=== PATIENT | male | born 1990 | race Caucasian/White ===

== ENCOUNTER 2016-12-16 02:47 | Inpatient (IN) | payer MEDICAID, OTHER ==
--- NOTE | 2016-12-16 03:42 | EDPHY ---
H & P Stated Complaint: Right finger infection x 2-3 days HPI/ROS: HPI CHIEF COMPLAINT: Right 3rd digit finger infection HISTORY OF PRESENT ILLNESS: This patient is a 18 year male significant past medical history for hdranaitis suppurtiva, presents emergency room with 2-3 days or since Fridayof his right hand 3rd digit. Patient denies trauma. He is unsure how it got swollen and infected. Presents emergency room 349 in the morning with severe pain and swelling to the 3rd digit. Denies fever. Does tell me the pain tracks up his finger to his palm and up his arm. Past Medical History: Hydranitis Suppurtiva Past Surgical History: Left hand surgery due to hand infection Social History: smokes tobacco, denies illicit drugs, denies alcohol, works at [employer] Family History: Noncontributory ROS REVIEW OF SYSTEMS: A comprehensive 10 point review of systems is otherwise negative aside from elements mentioned in the history of present illness. Exam Constitutional triage nursing summary reviewed, vital signs reviewed, awake/ alert. Eyes normal conjunctivae and sclera, EOMI, PERRLA. HENT normal inspection, atraumatic, moist mucus membranes, no epistaxis, neck supple/ no meningismus, no raccoon eyes. Respiratory clear to auscultation bilaterally, normal breath sounds, no respiratory distress, no wheezing. Cardiovascular rate normal, regular rhythm, no murmur, no edema, distal pulses normal. Gastrointestinal soft, non-tender, no rebound, no guarding, normal bowel sounds, no distension, no pulsatile mass. Genitourinary no CVA tenderness. Musculoskeletal right hand: Right hand is neurovascularly intact, good cap refill, warm extremity, good pulse. Noted on the 3rd digit: The 3rd digit is appearance of a sausage digit, is extrude was the tender over the palmar aspect there is an obvious infection to the 3rd digit. (specifically the finger is held in flexed position, there is uniform sausage digit swelling, it is warm, is tenderness palpation over the tendon, and has pain with passive extension) He does have signs of flexor tenosynovitis no midline vertebral tenderness, full range of motion, no calf swelling, no tenderness of extremities, no meningismus, good pulses, neurovascularly intact. Skin pink, warm, & dry, no rash, skin atraumatic. Neurologic awake, alert and oriented x 3, AAOx3, moves all 4 extremities equally, motor intact, sensory intact, CN II-XII intact, normal cerebellar, normal vision, normal speech. Psychiatric normal mood/affect. Heme/Lymph/Immune no lymphadenopathy. Differential Diagnosis: Includes but is not limited to in a particular order, hand infection, flexor tenosynovitis, finger infection, sepsis Medical Decision Making: This patient had an IV established this patient be given medication including pain is IV fentanyl, Zofran and IV fluids. He will need blood work. He will need x-ray of his digit. Will need to rule out foreign body Hand surgery be consulted. Patient will most likely need to be admitted. Re-evaluation: 0434: I did consult Hand surgery at this time. Spoke with Dr. Ramsey. Recommends admission to the hospital. He will he will consult on this patient. ED x-ray right 3rd digit: this x-ray shows significant soft tissue swelling. No foreign body seen. No bony abnormality no gas. 0436: This patient is resting comfortably in emergency room had IV fentanyl for pain control, IV fluids. X-ray reviewed shows no acute foreign body or bony abnormality. Soft tissue swelling present. Patient received IV vancomycin. Spoke with Hand surgery recommend hospital admission plan to see later today. Blood work has been reviewed shows an elevated CRP. No elevated white blood count or left shift. 0438:This patient is hemodynamically stable no acute distress, spoke with the hospitalist service Dr. Perez agrees to admit this patient. Hand surgeon to see today. Source: Patient - Personal History Current Tetanus Diphtheria and Acellular Pertussis (TDAP): Unsure - Medical/Surgical History Hx Asthma: No Hx Chronic Respiratory Disease: No Hx Diabetes: No Hx Cardiac Disease: No Hx Renal Disease: No Hx Cirrhosis: No Hx Alcoholism: No Hx HIV/AIDS: No Hx Splenectomy or Spleen Trauma: No Other PMH: HTN, SKIN CONDITION - Social History Smoking Status: Current every day smoker Constitutional: Initial Vital Signs Temperature (C) 36.6 C 12/16/16 03:02 Heart Rate 94 12/16/16 03:02 Respiratory Rate 18 12/16/16 03:02 Blood Pressure 149/84 H 12/16/16 03:02 O2 Sat (%) 94 12/16/16 03:02 O2 Delivery Mode Room Air Allergies/Adverse Reactions: sulfamethoxazole [From Bactrim] Allergy (Verified 12/16/16 03:01) trimethoprim [From Bactrim] Allergy (Verified 12/16/16 03:01) Home Medications: Medication Instructions Recorded Acetaminophen [Tylenol 325mg (*)] 325 mg PO DAILY PRN 12/16/16 Herbals/Supplements -Info Only 1 ea PO DAILY 12/16/16 Medical Decision Making - Data Points Laboratory Results: Laboratory Results 12/16/16 04:02 12/16/16 04:02 Medications Given: Discontinued Medications Diphenhydramine HCl (Benadryl Injection) 25 mg IVP EDNOW ONE Stop: 12/16/16 05:15 Last Admin: 12/16/16 05:15 Dose: 25 mg Fentanyl (Sublimaze) 50 mcg IVP EDNOW ONE Stop: 12/16/16 03:48 Last Admin: 12/16/16 04:04 Dose: 50 mcg Sodium Chloride (Ns) 1,000 mls @ 0 mls/hr IV ONCE ONE PRN Reason: Wide Open Stop: 12/16/16 03:48 Last Admin: 12/16/16 04:00 Dose: 1,000 mls Vancomycin HCl 1 gm/ Sodium (Chloride) 250 mls @ 250 mls/hr IV EDNOW ONE PRN Reason: Protocol Stop: 12/16/16 04:59 Last Admin: 12/16/16 04:13 Dose: 250 mls Vancomycin/Sodium Chloride (Vancomycin 1 Gm (Premix)) 250 mls @ 250 mls/hr IV Q12H JENARO PRN Reason: Protocol Stop: 01/15/17 04:59 Last Admin: 12/16/16 05:14 Dose: Not Given Sodium Chloride (Ns) 1,000 mls @ 75 mls/hr IV CONT JENARO Stop: 06/14/17 04:59 Last Admin: 12/16/16 06:05 Dose: 1,000 mls Lidocaine HCl (Lidocaine Hcl 1%) 30 ml IV ONCE ONE Stop: 12/16/16 07:31 Last Admin: 12/16/16 07:17 Dose: 30 ml Ondansetron HCl (Zofran) 4 mg IVP EDNOW ONE Stop: 12/16/16 03:48 Last Admin: 12/16/16 04:00 Dose: 4 mg Departure - Departure Disposition: [facility] Clinical Impression: Flexor tenosynovitis of finger, Infected hand Condition: Fair
[2016-12-16] MEDS ORDERED: fentaNYL 100 MCG/2 ML INJ IVP ONE (03:47)
[2016-12-16] MEDS ORDERED: ONDANSETRON 4 MG/2 ML VIAL IVP ONE (03:47)
[2016-12-16] MEDS ORDERED: NS 1,000 ML IV ONE (03:47)
[2016-12-16] MEDS ORDERED: VANCOMYCIN HCL/NORMAL SALINE 250 ML IV ONE (03:51)
[2016-12-16] MEDS ORDERED: VANCOMYCIN 1 GM in NS 250 ML IV ONE (04:00)
[2016-12-16 04:12] LABS: % IMMATURE GRANULYOCYTES 0.6 % (0.0-1.1); ABSOLUTE IMMATURE GRANULOCYTES 0.05 10^3/uL (0.00-0.10); ADD DIFF? NO; ADD MORPH? NO; ADD SCAN? NO; ATYPICAL LYMPHOCYTE FLAG 20 (0-99); FRAGMENT RBC FLAG 0 (0-99); HEMATOCRIT 42.8 % (40.0-51.0); LEFT SHIFT FLG 0 (0-99); LIPEMIA HEMOLYSIS FLAG 90 (0-99); MEAN CELL HEMOGLOBIN 32.1 pg (27.9-34.1); MEAN CELL VOLUME 91.6 fL (81.5-99.8); MEAN PLATELET VOLUME 9.4 fL (8.7-11.7); PLATELET CLUMPS FLAG 30 (0-99); PLATELET COUNT 197 10^3/uL (150-400); RED BLOOD CELL COUNT 4.67 10^6/uL (4.40-6.38); RED CELL DISTRIBUTION WIDTH 11.9 % (11.5-15.2)
[2016-12-16 04:21] LABS: SEDIMENTATION RATE 14 MM/HR (0-15)
[2016-12-16 04:28] LABS: ANION GAP 11 mEq/L (8-16); C-REACTIVE PROTEIN 27.1 mg/L (<10.0); CALCIUM 8.8 mg/dL (8.5-10.4); CARBON DIOXIDE 29 mEq/l (22-31); CHLORIDE 102 mEq/L (97-110); CREATININE 0.7 mg/dL (0.7-1.3); GLOMERULAR FILTRATION RATE > 60; GLUCOSE 85 mg/dL (70-100); POTASSIUM 4.1 mEq/L (3.5-5.2); SODIUM 142 mEq/L (134-144)
[2016-12-16] MEDS ORDERED: ONDANSETRON 4 MG/2 ML VIAL IVP PRN (04:51)
[2016-12-16] MEDS ORDERED: HYDROmorphONE/DILAUDID 1 MG/ML SYR IVP PRN (04:51)
[2016-12-16] MEDS ORDERED: ACETAMINOPHEN 325 MG TAB PO PRN ×2 (04:51→08:23)
[2016-12-16] MEDS ORDERED: oxyCODONE IR 5 MG TAB PO PRN (04:51)
[2016-12-16] MEDS ORDERED: ONDANSETRON DISINTEGRATING 4 MG TAB PO PRN (04:51)
[2016-12-16] MEDS ORDERED: VANCOMYCIN HCL/NORMAL SALINE 250 ML IV SCH ×2 (05:00→16:00)
[2016-12-16] MEDS ORDERED: NS 1,000 ML IV SCH (05:00)
[2016-12-16] MEDS ORDERED: VANCOMYCIN 1 GM in NS 250 ML IV SCH (06:00)
--- NOTE | 2016-12-16 07:28 | GHP ---
[f rep st] HISTORY AND PHYSICAL DATE OF ADMISSION: 12/16/2016 DATE OF EVALUATION: 12/16/2016 CHIEF COMPLAINT: Finger pain. HISTORY OF PRESENT ILLNESS: This is a 26-year-old man with a history of a left finger infection, who presents with a right finger infection. This started 2 days prior to admission when the tip turned purple. It began to hurt severely the day before. He thus presented to the emergency department. H e denies any trauma. No cuts that he knows about. He says the pain is severe. He is unable to bend his finger very significantly. He has not had any fevers to his knowledge. PAST MEDICAL/SURGICAL HISTORY: 1. Hidradenitis suppurativa. 2. Left finger infection which required a surgical I and D. MEDICATIONS: Please see medication list. ALLERGIES: Bactrim. FAMILY HISTORY: His mother has hydradenitis suppurativa. SOCIAL HISTORY: He is currently incarcerated, on work release. He smokes, but does not drink. REVIEW OF SYSTEMS: Ten-point review of systems is conducted and is negative, except per HPI. PHYSICAL EXAM: VITAL SIGNS: Blood pressure 141/90, heart rate 82, respiration rate 16, saturation 9 6% on room air, temperature is 36.6. GENERAL: The patient is a pleasant man, who appears somewhat d istress. HEENT shows sclerae to be nonicteric. Atraumatic. CARDIOVASCULAR: Regular rate and rhyth m. No murmurs, rubs, or gallops. PULMONARY: Lungs clear bilaterally. ABDOMEN: Soft, nontender, n ondistended. SKIN: No rash. : No Morris. NEUROLOGIC shows him to be alert and oriented x3. He is moving all extremities. PSYCHIATRIC: Normal mood and affect. EXTREMITIES show his right 3rd fin tylor to be significantly swollen. Tip is purplish-reddish, very tender to palpation. He is very tend er with passive range of motion. LABS: White count is normal. ESR is normal. CRP is 27. Basic metabolic panel is normal. DATA: 1. I discussed this with Dr. Moser. We will admit to med/surg. 2. I have personally viewed and interpreted his x-ray of his finger. It shows no foreign bodies. IMPRESSION AND PLAN: A 26-year-old male with a 3rd finger, soft tissue infection, concerning for ten osynovitis. 1. Finger infection: We will provide him with gram-positive coverage with vancomycin. Dr. Braulio mcclain s been consulted. Will likely plan I and D later today. I have placed an Infectious Disease consult as well. He does have a history of previous soft tissue infections. He denies any trauma to this. 2. Venous thromboembolism risk is low. 3. Hidradenitis suppurativa: He is supposed to be on clindamycin, though he has been off for a few days. Vancomycin will cover this for now. /[id number]/MODL
[2016-12-16] MEDS ORDERED: LIDOCAINE 1% 30 ML SDV IV ONE (07:30)
--- NOTE | 2016-12-16 08:19 | GCON ---
[f rep st] CONSULTATION CHIEF COMPLAINT: Right long finger pain and swelling. HISTORY OF PRESENT ILLNESS: The patient presented to the ER early this morning with a right third fi nger infection. He is 26 years old and has a 2-day history of insidious onset pain, swelling, and te nderness with erythema. He is not sure how it has gotten infected. PAST MEDICAL HISTORY: Hidradenitis suppurativa. PAST SURGICAL HISTORY: Left hand surgery due to infection. SOCIAL HISTORY: Smokes tobacco. Denies illicit drugs. Denies alcohol use. Works at [employer]. FAMILY HISTORY: Noncontributory. REVIEW OF SYSTEMS: Afebrile. Right long finger pain and swelling. PHYSICAL EXAMINATION: GENERAL: The patient is alert, oriented, and appropriate. EXTREMITIES: He has a swollen right long finger. He really does not have any significant tenderness to his flexor tendon sheath proximal to the PIP joint. He has complete and normal mobility of the P IP and MP joint to the right long finger. He has a clear felon, which has almost come to a head at t he pulp of his right long fingertip. He has no lymphangitic streaking. His skin is otherwise intact with no other skin wounds. He has good circulation to the distal tip and he has good sensation to t he distal tip. X-RAYS: AP and lateral show no foreign body, no abnormality such as gas. ASSESSMENT: Felon, right long fingertip. PLAN AND RECOMMENDATION: Under sterile conditions at the beside, I performed a digital block using 1 % lidocaine. I made an incision at the pulp of the fingertip and, when opened, there was a clear pus in the pulp consistent with a felon. There was no communication more proximally in the flexor tendo n sheath. The pus was expressed. I got some cultures at the beside using a culture swab and then I thoroughly irrigated the area. I left it open and sterilely dressed. The patient tolerated the proc edure well. The patient should likely remain on IV antibiotics for the next 24 hours as an inpatient. He can get some culture results early. Defer to the hospitalist about determination of discharge, but I would imagine he could be discharged tomorrow. He can follow up in my office at the end of the week. The wound will heal by secondary intention. /[id number]/MODL
[2016-12-16] MEDS ORDERED: Herbals/Supplements -Info Only PO SCH (09:00)
--- NOTE | 2016-12-16 09:07 | DX ---
Right Third Finger 3 Views History: Pain and swelling. Comparison: None available. Findings: No fractures identified. Alignment is normal. Bone mineralization is normal. There is no si gnificant degenerative change. No radiopaque foreign object is identified. There is diffuse soft tiss ue swelling. Impression: No acute osseous findings.
[2016-12-16] MEDS: VANCOMYCIN 1 GM in NS 250 ML IV SCH (16:03)
--- NOTE | 2016-12-16 16:16 | HOSPPROG ---
Hospitalist Progress Note Assessment/Plan: Right finger infection Appreciate Dr. Miller Continue IV antibiotics at this time Consult with Infectious Disease Continue pain management Follow up tomorrow Subjective: Tired. Still having significant pain. Objective: Vital Signs Temp Pulse Resp BP Pulse Ox 36.9 C 83 12 130/84 H 94 12/16/16 15:55 12/16/16 15:55 12/16/16 15:55 12/16/16 15:55 12/16/16 15:55 Microbiology 12/16/16 07:30 Gram Stain - Final Finger - Swab 12/15/16 12/16/16 12/17/16 05:59 05:59 05:59 Intake Total 1000 1220 Balance 1000 1220 - Physical Exam Constitutional: obese, uncomfortable Eyes: PERRL, anicteric sclera Ears, Nose, Mouth, Throat: moist mucous membranes, hearing normal Cardiovascular: No JVD, No edema Respiratory: no respiratory distress Gastrointestinal: No tenderness, No ascites Skin: warm, erythema Musculoskeletal: generalized weakness Neurologic: AAOx3 Psychiatric: not anxious, not encephalopathic ICD10 Worksheet Patient Problems: Problems Problem Status Diagnosed Flexor tenosynovitis of finger Acute Infected hand Acute
[2016-12-16 22:35] VITALS: RESP 18
[2016-12-17] MEDS: VANCOMYCIN 1 GM in NS 250 ML IV SCH (03:16)
--- NOTE | 2016-12-17 03:28 | GCON ---
[f rep st] CONSULTATION INPATIENT INFECTIOUS DISEASE CONSULTATION REFERRING PHYSICIAN: Khari Ramsey MD REASON FOR REFERRAL: Right third digit felon. 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 He h as a history of having a left finger infection a couple of years ago, but presented this time with a right third digit infection. The patient stated 2 days prior to admission, the tip began to swell an d turn color. It began to hurt severely. The patient was seen by Hand Surgery who took him to the perating room, and incised the collection in the tip of his finger. Cultures were obtained. He was placed empirically on vancomycin 1 g IV q.12 hours. PAST MEDICAL HISTORY: 1. Hidradenitis suppurativa. 2. Left finger infection. PAST SURGICAL HISTORY: 1. Status post incision and drainage in the left finger. 2. Status post incision and drainage, right third digit. ANTIBIOTICS: Vancomycin. ALLERGIES: Patient is allergic to sulfa. SOCIAL HISTORY: The patient is currently on work release. He moved here to [place] from [facility] proximately 6 months ago. Acknowledges tobacco use, but denies alcohol use. FAMILY HISTORY: Reviewed but noncontributory. REVIEW OF SYSTEMS: Other than that detailed above in History of Present Illness, a comprehensive 10 system review is negative. PHYSICAL EXAMINATION: VITAL SIGNS: Temperature maximum 36.9, temperature current is 36.9. Heart ra te 83, respiratory rate is 12, blood pressure is 130/84. GENERAL: The patient is a well-formed, wel l-nourished male in no acute distress. He is not toxic in appearance. He is alert and oriented x3. He is in a pleasant demeanor. HEENT: Normocephalic for age, atraumatic. NECK: Supple. No mening ismus. LUNGS: Clear to auscultation bilaterally. Good effort. HEART: Regular rate and rhythm. N o murmur, rub, or gallop noted. SKIN: Warm and dry to the touch. No rash noted. Patient has a rig ht third digit incision status post I and D. There is no proximal erythema around the dressings. Th e patient's neuro is intact around the finger. LABORATORY DATA: Patient has a CBC dated 12/16/16 which is all within normal limits. White blood ce ll count of 8.03. There is no left shifting. Serum chemistries on 12/16/16 are all within normal li mits. Creatinine 0.7. C-reactive protein is elevated at 27.1. ASSESSMENT: Right third finger felon. Microbiologic data showing Gram-positive cocci in the Gram st ain. Culture is pending. Most likely, this represents Staphylococcus aureus disease. The patient i s covered well on vancomycin. Hopefully, we can figure out from sensitivity panel what the patient w ill be able to tolerate orally. I suspect once patient is stable from surgery and we return with cul ture results, he can be switched to oral medication for discharge. PLAN: 1. Continue vancomycin for now. 2. Follow up on appearance of incision and drainage site. 3. Follow up on sensitivity panel from the operating room. /[id number]/MODL
[2016-12-17 08:10] VITALS: BP 140/70; PULSE 74; TEMP 98.1; O2SAT 95
--- NOTE | 2016-12-17 11:53 | SOAPPROG ---
SOAP Progress Note Assessment/Plan: Assessment: Felon / Finger Abcess Right Long finger Plan: MRSA positive culture. ID to determine home antibiotic coverage. Discussed with RN (Yuridia) who will change the dressing. Patient can go home any time and has been given instruction to see me in the office on Friday. 12/17/16 11:51 Objective: Vital Signs Temp Pulse Resp BP Pulse Ox 36.7 C 74 18 140/70 H 95 12/17/16 08:00 12/17/16 08:00 12/17/16 08:00 12/17/16 08:00 12/17/16 08:00 Microbiology 12/16/16 07:30 Gram Stain - Final Finger - Swab 12/16/16 12/17/16 12/18/16 05:59 05:59 05:59 Intake Total 1000 1498 Balance 1000 1498 ICD10 Worksheet Patient Problems: Problems Problem Status Diagnosed Flexor tenosynovitis of finger Acute Infected hand Acute
--- NOTE | 2016-12-17 11:56 | PCMIDPN ---
Assessment/Plan: Assessment/Plan: 1. Right 3rd finger felon.: s/p I & D - cx with mrsa -currently on vanco. will change to doxy 100mg bid x 10 days. -care coordinate with hospitalist team. ok to d/c from ID standpoint. -f/u in office in 10-14 days. Subjective: afebrile. denies sob, abd pian or diarrhea. denies pain involving finger. Objective: Vital Signs Temp Pulse Resp BP Pulse Ox 36.7 C 74 18 140/70 H 95 12/17/16 08:00 12/17/16 08:00 12/17/16 08:00 12/17/16 08:00 12/17/16 08:00 Microbiology 12/16/16 07:30 Gram Stain - Final Finger - Swab 12/16/16 12/17/16 12/18/16 05:59 05:59 05:59 Intake Total 1000 1498 Balance 1000 1498 ESR 14 MM/HR (0-15) 12/16/16 04:02 C-Reactive Protein 27.1 mg/L (<10.0) H 12/16/16 04:02 - Physical Exam General Appearance: alert, no apparent distress Respiratory: lungs clear Cardiac/Chest: regular rate, rhythm Extremities: No swelling Abdomen: normal bowel sounds, non-tender, soft, No distended Skin: other (finger dressed in op dressing) ICD10 Worksheet Patient Problems: Problems Problem Status Diagnosed Flexor tenosynovitis of finger Acute Infected hand Acute
--- NOTE | 2016-12-18 01:16 | GDS ---
[f rep st] DISCHARGE SUMMARY DISCHARGE DIAGNOSES: 1. Felon finger abscess of the right long finger. 2. Methicillin-resistant Staphylococcus aureus. CONSULTATIONS: 1. Khari Ramsey MD. 2. Dr. Byrne of Infectious Disease. PHYSICAL EXAMINATION: GENERAL: The patient is alert. VITAL SIGNS: Afebrile at 36.7, pulse 74, res piratory rate is 18, blood pressure is 140/70, saturating 95% on room air. I have seen and evaluated the patient on the day of discharge. HOSPITAL COURSE: The patient is a 26-year-old male who presented to the emergency room with complain ts of right long finger pain. He was evaluated by Dr. Ramsey and diagnosed with finger abscess. He r eceived I and D of this condition. Cultures demonstrated MRSA. The patient has been consulted on by Infectious Disease and was recommended to have oral doxycycline in the outpatient setting. I review ed the patient's care with Dr. Cyndy Brown of Infectious Disease, who is in agreement with this plan. Followup will be with Dr. Ramsey, as well as Dr. Brown of Infectious Disease on 12/30/2016 at 10 a.m. Outpatient antibiotics and intervention have been arranged at the time of disposition. Prescriptions include doxycycline, as well as oxycodone IR. I spent greater than 35 minutes in the care, coordination, and management of this patient's dispositi on. /[id number]/MODL
== END 2016-12-17 13:27 | disposition home or self-care (01) | DRG 603 ==
LOC: F3E 05:23
PROVIDERS: ADMIT Student in an Organized Health Care Education/Training Program; ATTEND Hospitalist
PROC: 0J9J3ZX Drainage of Right Hand Subcutaneous Tissue and Fascia, Percutaneous Approach, Diagnostic (ICD-10-PCS; principal; 2016-12-16)
DX: L03.011 Cellulitis of right finger (principal); B95.62 Methicillin resistant Staphylococcus aureus infection as the cause of diseases classified elsewhere; L73.2 Hidradenitis suppurativa; I10 Essential (primary) hypertension
CPT/HCPCS: 96374; J1170; J1200; J2405; J3010; J3370

== ENCOUNTER 2017-02-16 14:56 | Emergency (ER) | payer OTHER, MEDICAID ==
--- NOTE | 2017-02-16 15:24 | EDPHY ---
H & P Time Seen by Provider: 02/16/17 15:04 HPI/ROS: Chief complaint. Prescription refill HPI. 26-year-old male with long history of hidradenitis suppurativa presents to the emergency department asking for refill of doxycycline as this skin condition on his back as gotten worse. No fever no other complaints. This is typical eruption of his skin. ROS Constitutional. no fever/chills, no weakness Eyes. no problems with vision ENT. no sore throat, no nasal drainage Cardiovascular. no chest pain Respiratory. no shortness of breath, no cough Abdominal. no abdominal pain, no nausea/vomiting, no diarrhea . no problems urinating MS. no calf pain/swelling, no neck/back pain, no joint pain Skin. Skin rash on back Lymph. no swollen glands Neuro. no headache, no dizziness, no difficulty walking or with speech Past Medical/Surgical History: Hypertension, hidradenitis suppurativa Social History: Single, daily smoker, no alcohol Smoking Status: Current every day smoker Physical Exam: General Appearance: Alert pleasant well-developed male no distress vitals are stable Eyes: Pupils equal and round no pallor or injection. ENT, Mouth: Mucous membranes are moist. Respiratory: There are no retractions, lungs are clear to auscultation. Cardiovascular: Regular rate and rhythm. Gastrointestinal: Abdomen is soft and nontender, no masses, bowel sounds normal. Neurological: Awake and alert, sensory and motor exams grossly normal. Skin: Patient has evidence of abscesses and scarring on his back. No active cellulitis. Musculoskeletal: Neck is supple nontender. Extremities symmetrical, full range of motion. Psychiatric: Patient is oriented X 3, there is no agitation. Constitutional: Initial Vital Signs Temperature (C) 36.8 C 02/16/17 15:04 Heart Rate 110 H 02/16/17 15:04 Respiratory Rate 16 02/16/17 15:04 Blood Pressure 145/71 H 02/16/17 15:04 O2 Sat (%) 96 02/16/17 15:04 O2 Delivery Mode Room Air Allergies/Adverse Reactions: sulfamethoxazole [From Bactrim] Allergy (Verified 12/16/16 03:01) trimethoprim [From Bactrim] Allergy (Verified 12/16/16 03:01) Home Medications: Medication Instructions Recorded Acetaminophen [Tylenol 325mg (*)] 325 mg PO DAILY PRN 12/16/16 Herbals/Supplements -Info Only 1 ea PO DAILY 12/16/16 Doxycycline Hyclate [Vibramycin 100 mg PO BID #20 cap 12/17/16 100 MG (*)] oxyCODONE IR [Oxycodone Ir (*)] 5 - 10 mg PO Q3HRS PRN #20 tab 12/17/16 Doxycycline Hyclate 100 mg PO BID #30 tab 02/16/17 Ibuprofen 800 mg PO Q6-8PRN PRN #30 tablet 02/16/17 Medical Decision Making ED Course/Re-evaluation: The patient remained stable. He and I discussed treatment plan, criteria for return importance of follow-up and further evaluation. He expresses understanding and agreed Differential Diagnosis: Recurring skin infection previously diagnosis hidradenitis suppurativa Departure - Departure Disposition: Home, Routine, Self-Care Clinical Impression: Hidradenitis suppurativa Condition: Good Instructions: Hidradenitis Suppurativa (ED) Additional Instructions: Doxycycline twice daily. Return for worsening symptoms. [facility] for [facility] evaluation and management. Referrals: NONE *PRIMARY CARE P,. [Primary Care Provider] - As per Instructions [facility] [Outside] - 5-7 days, call for appt. Prescriptions: Doxycycline Hyclate 100 mg PO BID #30 tab Ibuprofen 800 mg PO Q6-8PRN PRN #30 tablet PRN Reason: Pain, Moderate
[2017-02-16 15:37] VITALS: BP 128/78; PULSE 70; RESP 14; TEMP 98.4; O2SAT 94
== END 2017-02-16 15:36 | disposition home or self-care (01) ==
DX: L73.2 Hidradenitis suppurativa (principal); F17.200 Nicotine dependence, unspecified, uncomplicated; I10 Essential (primary) hypertension

== ENCOUNTER 2017-02-22 19:54 | Emergency (ER) | payer OTHER, MEDICAID ==
[~2017-02-22 19:54] MED LIST: CLINDAMYCIN 150 MG CAP PO SCH
[2017-02-22 20:12] VITALS: TEMP 99.3
[2017-02-22] MEDS ORDERED: HYDROmorphONE/DILAUDID 1 MG/ML SYR IM ONE (20:38)
--- NOTE | 2017-02-22 20:43 | EDPHY ---
H & P Stated Complaint: 'SKIN FLARE UP", 2 CYSTS ON NECK, PAIN, NAUSEA,VOMIT,SUPOSED TO BE DOXYCYLI Time Seen by Provider: 02/22/17 20:36 HPI/ROS: CHIEF COMPLAINT: abscess HISTORY OF PRESENT ILLNESS: The patient is a 26-year-old man with a history of hidradenitis suppurativa comes to the emergency department complaining of several abscesses to the back of his neck. He states that this is a common place. He is supposed to be on doxycycline and clindamycin but does not have money to fill his prescriptions. He is currently on work release. He has not had a fever. He has not been tachycardic. No weakness or deficits or radiculopathy. REVIEW OF SYSTEMS: Constitutional: denies: chills, fever, recent illness, recent injury EENTM: denies: blurred vision, double vision, nose congestion Respiratory: denies: cough, shortness of breath Cardiac: denies: chest pain, irregular heart rate, lightheadedness, palpitations Gastrointestinal/Abdominal: denies: abdominal pain, diarrhea, nausea, vomiting, blood streaked stools Genitourinary: denies: dysuria, frequency, hematuria, pain Musculoskeletal: See HPI Skin: See HPI Neurological: denies: headache, numbness, paresthesia, tingling, dizziness, weakness Hematologic/Lymphatic: denies: blood clots, easy bleeding, easy bruising Immunologic/allergic: denies: HIV/AIDS, transplant EXAM: GENERAL: Well-appearing, well-nourished and in no acute distress. HEAD: Atraumatic, normocephalic. EYES: Pupils equal round and reactive to light, extraocular movements intact, sclera anicteric, conjunctiva are normal. ENT: TMs normal, nares patent, oropharynx clear without exudates. Moist mucous membranes. NECK: Normal range of motion, supple without lymphadenopathy or JVD. LUNGS: Breath sounds clear to auscultation bilaterally and equal. No wheezes rales or rhonchi. HEART: Regular rate and rhythm without murmurs, rubs or gallops. ABDOMEN: Soft, nontender, normoactive bowel sounds. No guarding, no rebound. No masses appreciated. BACK: No CVA tenderness, no spinal tenderness, step-offs or deformities EXTREMITIES: Normal range of motion, no pitting or edema. No clubbing or cyanosis. NEUROLOGICAL: Cranial nerves II through XII grossly intact. Normal speech, normal gait. 5/5 strength, normal movement in all extremities, normal sensation PSYCH: Normal mood, normal affect. SKIN: Several small abscesses to the back of his neck. Ranging from 1-3 cm in size. Multiple scars throughout back from previous abscesses. Source: Patient Exam Limitations: No limitations - Personal History Current Tetanus/Diphtheria Vaccine: Yes - Medical/Surgical History Hx Asthma: No Hx Chronic Respiratory Disease: No Hx Diabetes: No Hx Cardiac Disease: No Hx Renal Disease: No Hx Cirrhosis: No Hx Alcoholism: No Hx HIV/AIDS: No Hx Splenectomy or Spleen Trauma: No Other PMH: HTN, SKIN CONDITION:HYDRODENITIS, SUPERTIVA - Family History Significant Family History: No pertinent family hx - Social History Smoking Status: Current every day smoker Alcohol Use: Sober Drug Use: None Constitutional: Initial Vital Signs Temperature (C) 37.4 C 02/22/17 20:08 Heart Rate 100 02/22/17 20:08 Respiratory Rate 20 02/22/17 20:08 Blood Pressure 124/74 H 02/22/17 20:08 O2 Sat (%) 94 02/22/17 20:08 O2 Delivery Mode Room Air Allergies/Adverse Reactions: sulfamethoxazole [From Bactrim] Allergy (Verified 02/22/17 20:00) trimethoprim [From Bactrim] Allergy (Verified 02/22/17 20:00) Home Medications: Medication Instructions Recorded Clindamycin HCl [Clindamycin] 300 mg PO TID #30 cap 02/22/17 Medical Decision Making Procedures: Procedure: Abscess drainage. The patient's abscess was located on the neck. I obtained verbal consent from the patient to drain the abscess who was informed about the possibility of bleeding and pain. The abscess was incised with 11 blade scalpel and 1 cc of purulent drainage was expressed. I irrigated the wound and placed some packing. The patient tolerated the procedure well. The procedure was performed by myself. Procedure: Abscess drainage. The patient's abscess was located on the neck. I obtained verbal consent from the patient to drain the abscess who was informed about the possibility of bleeding and pain. The abscess was incised with 11 blade scalpel and 3 cc of purulent drainage was expressed. I irrigated the wound and placed some packing. The patient tolerated the procedure well. The procedure was performed by myself. Procedure: Abscess drainage. The patient's abscess was located on the neck. I obtained verbal consent from the patient to drain the abscess who was informed about the possibility of bleeding and pain. The abscess was incised with 11 blade scalpel and 5 cc of purulent drainage was expressed. I irrigated the wound and placed some packing. The patient tolerated the procedure well. The procedure was performed by myself. ED Course/Re-evaluation: I will drain the patient's abscesses and start him back on antibiotics. We will fill them through the [facility] program. Patient tolerated the procedure with significant amount of pain. He did receive IM Dilaudid before. He is used to changing his dressings on his own. We have filled his prescription through the [facility] program and have encouraged him to resume taking it. We discussed indications for returning. Currently he is not toxic. Differential Diagnosis: Partial list of the Differential diagnosis considered include but were not limited to; hidradenitis, abscess, cyst, IV drug abuse, and although unlikely based on the history and physical exam, I also considered spinal cord lesion, osteomyelitis, diskitis. I discussed these differential diagnoses and the plan with the patient as well as the usual and expected course. The patient understands that the diagnosis is provisional and that in medicine we are not always correct and that further workup is often warranted. Usual and customary warnings were given. All of the patient's questions were answered. The patient was instructed to return to the emergency department should the symptoms at all worsen or return, otherwise to followup with the physician as we discussed. - Data Points Medications Given: Discontinued Medications Hydromorphone HCl (Dilaudid) 2 mg IM EDNOW ONE Stop: 02/22/17 20:39 Last Admin: 02/22/17 20:45 Dose: 2 mg Departure - Departure Disposition: Home, Routine, Self-Care Clinical Impression: MRSA (methicillin resistant Staphylococcus aureus), Hidradenitis suppurativa Condition: Fair Instructions: Hidradenitis Suppurativa (ED) Referrals: NONE *PRIMARY CARE P,. [Primary Care Provider] - As per Instructions Prescriptions: Clindamycin HCl [Clindamycin] 300 mg PO TID #30 cap
[2017-02-22 21:36] VITALS: BP 141/100; PULSE 109; RESP 18; O2SAT 96
== END 2017-02-22 21:38 | disposition home or self-care (01) ==
PROC: 0H94XZZ Drainage of Neck Skin, External Approach (ICD-10-PCS; principal; 2017-02-22)
DX: L73.2 Hidradenitis suppurativa (principal); B95.62 Methicillin resistant Staphylococcus aureus infection as the cause of diseases classified elsewhere; I10 Essential (primary) hypertension; F17.200 Nicotine dependence, unspecified, uncomplicated
CPT/HCPCS: J1170

== ENCOUNTER 2017-03-24 09:26 | Emergency (ER) | payer MEDICAID, OTHER ==
[2017-03-24 09:31] VITALS: RESP 18; O2SAT 96
[2017-03-24] MEDS ORDERED: NS 1,000 ML IV ONE ×2 (10:04)
[2017-03-24] MEDS ORDERED: ONDANSETRON 4 MG/2 ML VIAL IVP ONE (10:05)
--- NOTE | 2017-03-24 11:12 | EDPHY ---
H & P Stated Complaint: n/v/d Time Seen by Provider: 03/24/17 09:36 HPI/ROS: CHIEF COMPLAINT: Nausea, vomiting, diarrhea HISTORY OF PRESENT ILLNESS: 26-year-old male presents emergency department reporting nausea, vomiting and diarrhea that started this morning. Patient woke up feeling okay, he went to work and had 1 loose stool which progressed to multiple episodes of diarrhea. He then developed nausea and vomiting. Patient states he has vomited 10 times this morning. He denies abdominal pain, he denies blood in his stool or vomit. Patient reports no recent sick contacts. He is in a work release program and sleeps in [facility]. REVIEW OF SYSTEMS: A comprehensive 10 point review of systems is otherwise negative aside from elements mentioned in the history of present illness. Source: Patient Exam Limitations: No limitations - Personal History Current Tetanus/Diphtheria Vaccine: Yes - Medical/Surgical History Hx Asthma: No Hx Chronic Respiratory Disease: No Hx Diabetes: No Hx Cardiac Disease: No Hx Renal Disease: No Hx Cirrhosis: No Hx Alcoholism: No Hx HIV/AIDS: No Hx Splenectomy or Spleen Trauma: No Other PMH: HTN, SKIN CONDITION:HYDRODENITIS, SUPERTIVA - Social History Smoking Status: Current every day smoker Constitutional: Initial Vital Signs Temperature (C) 36.4 C 03/24/17 09:29 Heart Rate 76 03/24/17 09:29 Respiratory Rate 18 03/24/17 09:29 Blood Pressure 144/90 H 03/24/17 09:29 O2 Sat (%) 96 03/24/17 09:29 O2 Delivery Mode Room Air Allergies/Adverse Reactions: sulfamethoxazole [From Bactrim] Allergy (Verified 03/24/17 09:28) trimethoprim [From Bactrim] Allergy (Verified 03/24/17 09:28) Home Medications: Medication Instructions Recorded Clindamycin HCl [Clindamycin] 300 mg PO TID #30 cap 02/22/17 Ondansetron Odt [Zofran Odt] 4 mg PO Q6-8PRN PRN #8 tab 03/24/17 Medical Decision Making ED Course/Re-evaluation: IV established, patient is given 4 mg of Zofran IV and 2 L of normal saline. Patient has had no episodes of emesis or diarrhea in the emergency department, he reports he has feel better., repeat abdominal exam shows no tenderness, no peritoneal signs. Patient tolerated p.o. well. I will discharge him home with a prescription for Zofran. He is given strict return precautions for worsening symptoms, new symptoms or concerns. Differential Diagnosis: Diagnosis considered but not limited to gastroenteritis, gastritis, viral illness, small-bowel obstruction - Data Points Medications Given: Discontinued Medications Sodium Chloride (Ns) 1,000 mls @ 0 mls/hr IV ONCE ONE PRN Reason: Wide Open Stop: 03/24/17 10:05 Last Admin: 03/24/17 10:35 Dose: 1,000 mls Sodium Chloride (Ns) 1,000 mls @ 0 mls/hr IV ONCE ONE PRN Reason: Wide Open Stop: 03/24/17 10:05 Last Admin: 03/24/17 10:35 Dose: 1,000 mls Ondansetron HCl (Zofran) 4 mg IVP EDNOW ONE Stop: 03/24/17 10:06 Last Admin: 03/24/17 10:35 Dose: 4 mg Departure - Departure Disposition: Home, Routine, Self-Care Clinical Impression: Nausea, vomiting and diarrhea Condition: Good Instructions: Acute Nausea and Vomiting (ED), Acute Diarrhea (ED) Additional Instructions: Take 4 mg of Zofran every 8 hours as needed for nausea, stay hydrated, drink plenty of fluids, start with clear liquids only for the 1st 24 hours then advance her diet slowly as tolerated with bland foods. Return to the emergency department for any abdominal pain, new or worsening symptoms or concerns. Referrals: [facility],. [Clinic] - As per Instructions Prescriptions: Ondansetron Odt [Zofran Odt] 4 mg PO Q6-8PRN PRN #8 tab PRN Reason: Nausea/Vomiting, Can'T Take Po
[2017-03-24 11:49] VITALS: BP 146/91; PULSE 78; TEMP 98.1
== END 2017-03-24 11:49 | disposition home or self-care (01) ==
DX: R11.2 Nausea with vomiting, unspecified (principal); R19.7 Diarrhea, unspecified; I10 Essential (primary) hypertension; F17.200 Nicotine dependence, unspecified, uncomplicated
CPT/HCPCS: 96374; J2405

== ENCOUNTER 2017-03-27 06:56 | Emergency (ER) | payer MEDICAID ==
[2017-03-27 07:04] VITALS: BP 144/79; PULSE 102; RESP 16; TEMP 97.5; O2SAT 97
--- NOTE | 2017-03-27 07:43 | EDPHY ---
H & P Time Seen by Provider: 03/27/17 07:13 HPI/ROS: CHIEF COMPLAINT: Draining wound on upper back x 1 year HISTORY OF PRESENT ILLNESS: Patient has a long history of hidradenitis suppurativa with multiple skin abscesses in draining wounds. The ones on his upper back been present intermittently for the last year and he was just on 3 weeks of clindamycin which finished 3 days ago. He presents with increasing pain and drainage on his upper back. REVIEW OF SYSTEMS: No fever or chills PAST MEDICAL HISTORY: Hidradenitis, hypertension Social history: currently on work release from prison General Appearance: Alert and conversant, cooperative. Patient has 2 open wounds on his upper back. The 1st is a right paraspinal what appears to be draining sinus tract which is 3 cm lateral to his upper T- spine. No surrounding redness and no pus or drainage from that 1. He has a 2nd 1 which is 1 cm in diameter on the left side which does not have surrounding erythema. There is no fluctuance. No lymphangitis. It is tender to palpation. Emergency Department course/MDM: Likely recurrent infected wounds from his chronic skin condition. Patient has been on doxycycline before and tolerated it well. He does have a history of MRSA. He is warned that antibiotics are not a definitive treatment for this problem and needs office surgical consultation at a minimum to explore other options. Referred to Dr. Barillas. Smoking Status: Current every day smoker Constitutional: Initial Vital Signs Temperature (C) 36.4 C 03/27/17 07:02 Heart Rate 102 H 03/27/17 07:02 Respiratory Rate 16 03/27/17 07:02 Blood Pressure 144/79 H 03/27/17 07:02 O2 Sat (%) 97 03/27/17 07:02 O2 Delivery Mode Room Air Allergies/Adverse Reactions: sulfamethoxazole [From Bactrim] Allergy (Intermediate, Verified 03/27/17 07:02) Hives trimethoprim [From Bactrim] Allergy (Verified 03/24/17 09:28) Home Medications: Medication Instructions Recorded Ondansetron Odt [Zofran Odt] 4 mg PO Q6-8PRN PRN #8 tab 03/24/17 Doxycycline Hyclate [Doxycycline] 100 mg PO BID #20 cap 03/27/17 MDM/Departure - Depart Disposition: Home, Routine, Self-Care Clinical Impression: Hidradenitis Condition: Good Instructions: Hidradenitis Suppurativa (ED) Additional Instructions: Call for office followup with Dr. Barillas in next 1-2 weeks for surgical evaluation of your chronic skin condition. Stand Alone Forms: Statement of Treatment Prescriptions: Doxycycline Hyclate [Doxycycline] 100 mg PO BID #20 cap Referrals: [facility],. [Clinic] - As per Instructions Morgan Barillas MD [Medical Doctor] - As per Instructions
== END 2017-03-27 07:54 | disposition home or self-care (01) ==
DX: L73.2 Hidradenitis suppurativa (principal); I10 Essential (primary) hypertension; F17.200 Nicotine dependence, unspecified, uncomplicated

== ENCOUNTER 2017-04-11 06:08 | Emergency (ER) | payer MEDICAID ==
[2017-04-11 06:15] VITALS: BP 145/84; PULSE 97; RESP 16; TEMP 98.1; O2SAT 97
--- NOTE | 2017-04-11 06:33 | EDPHY ---
H & P Stated Complaint: abcesses on neck/back related to skin disease Time Seen by Provider: 04/11/17 06:17 HPI/ROS: HPI The patient presents with 1 day of left-sided neck redness and swelling which is painful and getting progressively worse. It is been constant. He has a history of hidradenitis suppurativa. He recently finished a course of doxycycline. Acute supposed to have follow-up with the surgeon, though has not been seen yet. He denies any fevers or chills.. REVIEW OF SYSTEMS Constitutional: No fever, no chills. Eyes: No discharge. ENT: No sore throat. Cardiovascular: No chest pain, no palpitations. Respiratory: No cough, no shortness of breath. Gastrointestinal: No abdominal pain, no vomiting. Genitourinary: No hematuria. Musculoskeletal: No back pain. Skin: No rashes. Neurological: No headache. PMHx: Hidradenitis suppurativa Soc Hx: In a work release program PHYSICAL General Appearance: Alert, no distress Eyes: Pupils equal and round no pallor or injection ENT, Mouth: Mucous membranes moist Respiratory: There are no retractions, lungs are clear to auscultation Cardiovascular: Regular rate and rhythm Gastrointestinal: Abdomen is soft and non-tender, no masses, bowel sounds normal Neurological: A&O, moves all extremities Skin: Left neck with 1 cm area of erythema, warmth, tenderness, fluctuance Musculoskeletal: Neck is supple non tender Extremities: symmetrical, full range of motion Psychiatric: Patient is oriented X 3, there is no agitation Source: Patient - Medical/Surgical History Hx Asthma: No Hx Chronic Respiratory Disease: No Hx Diabetes: No Hx Cardiac Disease: Yes Hx Renal Disease: No Hx Cirrhosis: No Hx Alcoholism: No Hx HIV/AIDS: No Hx Splenectomy or Spleen Trauma: No Other PMH: HTN, SKIN CONDITION:HYDRODENITIS SUPERTIVA, surg R hand, surg L hand - Social History Smoking Status: Current every day smoker Constitutional: Initial Vital Signs Temperature (C) 36.7 C 04/11/17 06:12 Heart Rate 97 04/11/17 06:12 Respiratory Rate 16 04/11/17 06:12 Blood Pressure 145/84 H 04/11/17 06:12 O2 Sat (%) 97 04/11/17 06:12 O2 Delivery Mode Room Air Allergies/Adverse Reactions: sulfamethoxazole [From Bactrim] Allergy (Intermediate, Verified 04/11/17 06:16) Hives trimethoprim [From Bactrim] Allergy (Verified 04/11/17 06:16) vancomycin Allergy (Verified 04/11/17 06:16) Home Medications: Medication Instructions Recorded Doxycycline Hyclate 100 mg PO BID #28 tablet 04/11/17 Medical Decision Making Procedures: Incision and drainage- Using lidocaine 1% with epinephrine a skin wheal was raised over the abscess. Then, approximately 1 mL of anesthetic was injected. Using an 18 gauge needle approximately 2 mL of pus was aspirated. The patient tolerated the procedure well with no immediate complications. Differential Diagnosis: This is a 26-year-old male with history of hidradenitis suppurativa who presents with 1 day of left neck pain and swelling. On exam, he has an area of fluctuance consistent with abscess. Because this is caused by hidradenitis I will perform only needle aspiration and not incision and drainage. He will require course of doxycycline. He has already been referred to surgery, however has not followed up but has information to do so and will call today for an appointment. I have discussed wound care with him. Departure - Departure Disposition: Home, Routine, Self-Care Clinical Impression: Hydradenitis Condition: Good Instructions: Abscess (ED), Warm Compress or Soak (ED) Additional Instructions: Please return to the emergency room if your worse in any way. Otherwise please take the antibiotics as prescribed and follow up with the surgeon. Referrals: NONE *PRIMARY CARE P,. [Primary Care Provider] - As per Instructions Stand Alone Forms: Statement of Treatment Prescriptions: Doxycycline Hyclate 100 mg PO BID #28 tablet
== END 2017-04-11 06:51 | disposition home or self-care (01) ==
PROC: 0H94XZZ Drainage of Neck Skin, External Approach (ICD-10-PCS; principal; 2017-04-11)
DX: L73.2 Hidradenitis suppurativa (principal); I10 Essential (primary) hypertension; F17.200 Nicotine dependence, unspecified, uncomplicated